=== PATIENT | female | born 1985 | race Caucasian/White ===

== ENCOUNTER 2017-01-07 11:09 | Emergency (ER) | payer OTHER ==
[~2017-01-07] VITALS: Ht 157.5 cm; Wt 71.5 kg
[~2017-01-07 11:09] MED LIST: ALBU0.63 NEB; VENTAER INH; ZOFR4TAB PO
--- NOTE | 2017-01-07 12:10 | PD ---
HPI Chief Complaint Severe constipation and pain Date Seen: Jan 07, 2017 Travel History International Travel<30 Days: No Contact w/Intl Traveler<30Days: No Known Affected Area: No History of Present Illness HPI This patient is a 31-year-old at 17 weeks gestation [facility] who presents with a week long history of constipation she not had a bowel movement a week she's developed pain in the lower abdomen some rectal bleeding when she is straining to move her bowels. She has no vaginal bleeding of leakage of fluid discharge or contractions. heart tones in the 150s. Patient states she has a lifelong history of constipation and she has recently in the last week use MiraLAX magnesia Colace stool softeners other bowel stimulants and with no results Para: 2 : 3 History Past Medical History Narrative Medical Constipation long-term, asthma and she takes albuterol for this, she had some nausea and vomiting this past weekend use Zofran for that Obstetric History Obstetric History 2 vaginal deliveries Past Surgical History Narrative Surgical Cholecystectomy Social History Alcohol Use: No Tobacco Use: No Substance Abuse: No Allergies-Medications (Allergen,Severity, Reaction): Coded Allergies: No Known Allergies (Unverified , 12/28/16) Home Meds Active Scripts Ondansetron (Zofran)4 Mg Tab4 Mg PO Q6HR PRN (NAUSEA OR VOMITING) #30 TAB Ref 2 Prov:Amanda Johnston 12/28/16 Albuterol 18 GM Inh (Ventolin Hfa 18 GM Inh)90 Mcg/Act Aer2 Puff INH Q4-6H PRN ( SHORTNESS OF BREATH) #1 INHALER Ref 1 Prov:Dmitriy Nicholas MD 11/30/16 Albuterol Neb 0.63 Mg/3 Ml Neb0.63 Mg NEB Q4HR NEB PRN (SHORTNESS OF BREATH) # 25 NEBULE Ref 0 Prov:Dmitriy Nicholas MD 11/30/16 Review of Systems General / Constitutional: No: Fever, Weight Gain, Chills, Other Eyes: No: Diploplia, Blurred Vision, Visual changes, Pain, Photophobia HENT: No: Headaches, Vertigo, Lightheadedness Cardiovascular: No: Irregular Rhythm, Chest Pain or Discomfort, Palpitations, Tachycardia, Syncope, Varicosities, Edema, Cyanosis Respiratory: No: Cough, Short of Breath, Other Gastrointestinal: Nausea, Vomiting, Constipation, No: Diarrhea Genitourinary: No: Decreased Urinary Output, Oliguria Musculoskeletal: No: Limited ROM, Weakness, Cramping, Edema, Pain Skin: No Rash, No Itching, No Dryness, No Lumps, No Change in Pigmentation, No Change in Nails, No Alopecia, No Lesions Neurologic: No: Weakness, Dizziness, Syncope, Focal Abnormalities, Coordination Problem, Headache, Slurred Speech, Seizures Psychiatric: No: Depression, Suicidal Ideations, Homicidal Ideation Endocrine: No: Heat Intolerance, Cold Intolerance, Polydipsia, Polyuria, Other Physical Exam Narrative GENERAL: Well-nourished, well-developed patient. SKIN: Warm and dry. HEAD: Normocephalic and atraumatic. EYES: No scleral icterus. No injection or drainage. ENT: No nasal drainage noted. Mucous membranes pink. Airway patent. NECK: Supple, trachea midline. No JVD. CARDIOVASCULAR: Regular rate and rhythm without murmurs, gallops, or rubs. RESPIRATORY: Breath sounds equal bilaterally. No accessory muscle use. BREASTS: Bilateral exam showed no masses , no retractions, no nipple discharge. ABDOMEN/GI: Abdomen soft, tender, bowel sounds present, no rebound, no guarding Gravid to [-17] weeks size Fundal Height: [-17] uterus is two fingers lower than the umbilicus GENITOURINARY: External Genitalia: intact and normal in appearance The vagina is compromised by a large amount of very hard stool in the rectal vault stool is compressing the vaginal vault from the posterior to the anterior almost like she has a bowling ball in the bottom of her pelvis, and this is all very tender is 1 can imagine Cervix: [Closed-] Dilatation: [-Closed] Effacement: [-] Thick Station: [-3] Membranes: [intact ] FHT's: 150 -] EXTREMITIES: No cyanosis or edema. BACK: Nontender without obvious deformity. No CVA tenderness. NEUROLOGICAL: Awake and alert. Motor and sensory grossly within normal limits. Five out of 5 muscle strength in all muscle groups. Normal speech. MDM Interpretation(s) This patient is today 31-year-old at 17 weeks who presents with a week long history of constipation and worsening pain in the lower abdomen. As well as some rectal bleeding when she strained to push. She has tried a rebound stimulus that she knows [id number] and has not had a Bm. in a week. On exam the heart tones are 150s her cervix is closed and high she has no obstetric issue however vaginally when he tried in the vagina it uterine into a large lump of this hard stool still in the rectal vault filling the whole posterior pelvis very tender Plan Plan this patient is to clear her statically which we've done and back to the main ER she needs to be disimpacted digitally and she is just not going to past this, stool on her own risk and need to be removed and she may need an anesthetic of some type to do that either regional block or general and evacuate this colon, GI needs to see this woman and follow her as an ongoing problem for her Diagnosis Diagnosis: Primary Impression: Constipation by delayed colonic transit Additional Impression: Abdominal pain during in second trimester Condition: Stable Mitesh Sainz II, MD Jan 07, 2017 12:10
[2017-01-07 12:32] VITALS: BP 97/53; PULSE 73; RESP 16; TEMP 97.5; O2SAT 99
[2017-01-07] MEDS ORDERED: PREN29TA PO (12:46)
--- NOTE | 2017-01-07 13:59 | PD ---
HPI . Constipation Chief Complaint: GI Complaint Time Seen by Provider: 13:30 Travel History International Travel<30 days: No Contact w/Intl Traveler<30days: No Traveled to known affect area: No History of Present Illness HPI Patient was sent to us from the OB ER for constipation. Her has already been evaluated. She is 17 weeks . She states she has not had a bowel movement in a week. Stool softeners and laxatives with no relief. Her vaginal exam done in OB showed a fecal load which was palpable through the vaginal vault. PFSH Past Medical History Asthma: Yes ?: LMP: 09/09/2017 Past Surgical History Section: Yes (X1) Cholecystectomy: Yes Social History Alcohol Use: No Tobacco Use: No Substance Use: No Allergies-Medications (Allergen,Severity, Reaction): Coded Allergies: No Known Allergies (Unverified , 01/07/17) Reported Meds & Prescriptions Reported Meds & Active Scripts Active Zofran (Ondansetron HCl) 4 Mg Tab 4 Mg PO Q6HR PRN Ventolin Hfa 18 GM Inh (Albuterol Sulfate) 90 Mcg/Act Aer 2 Puff INH Q4-6H PRN Albuterol Neb (Albuterol Sulfate) 0.63 Mg/3 Ml Neb 0.63 Mg NEB Q4HR NEB PRN Reported Plus Iron 29-1 mg ( Vit-Iron Carbonyl) 1 Tab Tab 1 Tab PO DAILY Review of Systems Gastrointestinal: Positive: Abdominal Pain, Constipation Physical Exam Narrative GENERAL: Awake and alert and in no acute distress. SKIN: Warm and dry. CARDIOVASCULAR: Regular rate and rhythm. RESPIRATORY: No accessory muscle use. GI: Gravid uterus. MUSCULOSKELETAL: No obvious deformities. No edema. NEUROLOGICAL: Awake and alert. No obvious cranial nerve deficits. Motor grossly within normal limits. Normal speech. PSYCHIATRIC: Appropriate mood and affect; insight and judgment normal. Data Data Last Documented VS Vital Signs Date Time Temp Pulse Resp B/P Pulse Ox O2 Delivery O2 Flow Rate FiO2 01/07/17 12:32 97.5 73 16 97/53 99 Orders Attending Discharge Order (01/07/17 ) Mineral Oil Enema (Fleet Mineral Oil Rosario (01/07/17 14:00) Peg (High)/E-Lyte Liq (Colyte Liq) (01/07/17 15:30) Enema (01/07/17 15:30) [facility] Medical Decision Making Medical Screen Exam Complete: Yes Emergency Medical Condition: Yes Differential Diagnosis Differential diagnosis of abdominal pain includes but is not limited to gastritis, pancreatitis, hepatitis, gastroenteritis, gallbladder disease, constipation, urinary retention, UTI, peptic ulcer disease, diverticulitis or appendicitis Narrative Course Patient was sent to us from OB treatment of constipation. We will start with a mineral oil fleets enema. The fleets enema was not at all effective. I then attempted digital disimpaction. She did not tolerate this very well. I was unable to remove any stool. I was able to break up some stool. She then reports a small bowel movement. We also did GoLytely but she did not tolerate that. It caused nausea and vomiting. I had asked for a soapsuds enema with the patient initially refused. I explained to her that there was really not a whole lot more than we can do the size a soapsuds enema. She agreed. However she subsequently stated that she would not undergo a soapsuds enema. There is nothing more that we can do for this patient here. Therefore, she is being discharged home. Diagnosis Primary Impression: Constipation by delayed colonic transit Additional Impression: Abdominal pain during in second trimester Patient Instructions: General Instructions, Early Labor Signs (ED), Movement (ED), Abdominal Pain in (ED) Departure Forms: Tests/Procedures Additional Instructions: pt to be transferred to main ED for disimpaction. transferred via wheelchair. Med/Other Pt SpecificInfo: Prescription(s) given Scripts Peg-Electrolytes (Golytely 236 gm)4,000 Ml Soln4,000 Ml PO ONCE #1 CONTAINER Ref 0 Prov:Nemo Arthur MD 01/07/17 Condition: Stable Nemo Arthur MD Jan 07, 2017 13:59
[2017-01-07] MEDS: MINERAL OIL ENEMA 118 ML BTL RECTAL ONE (14:00)
[2017-01-07] MEDS: PEG (High)/E-LYTE SOLN 4000 ML BTL PO ONE (15:30)
[2017-01-07] MEDS ORDERED: COLY4000S PO (18:21)
[2017-02-22] MEDS ORDERED: TERC0.8C VAGINAL (09:51)
== END 2017-01-07 18:55 | disposition home or self-care (01) ==
LOC: HOBED 11:09 → NEPD 18:55
DX: O99.89 Other specified diseases and conditions complicating pregnancy, childbirth and the puerperium (principal); K59.00 Constipation, unspecified; R10.9 Unspecified abdominal pain; J45.909 Unspecified asthma, uncomplicated; Z3A.17 17 weeks gestation of pregnancy
CPT/HCPCS: 99283

== ENCOUNTER 2017-03-02 14:49 | Emergency (ER) | payer OTHER ==
[~2017-03-02] VITALS: Ht 157.5 cm; Wt 73.5 kg
[~2017-03-02 14:49] MED LIST changes: +COLY4000S PO; +PREN29TA PO; +TERC0.8C VAGINAL
[2017-03-02 15:15] VITALS: TEMP 98.2
--- NOTE | 2017-03-02 15:30 | PD ---
HPI Chief Complaint crampy abdominal pain, r/o contractions Date Seen: Mar 02, 2017 Time Seen: 15:30 Travel History International Travel<30 Days: No Contact w/Intl Traveler<30Days: No Known Affected Area: No History of Present Illness HPI Patient is a 31-year-old at 24 weeks and 6 days and presents with 2 days of crampy abdominal pain. Patient reports that her crampy abdominal pain started yesterday morning upon waking. She reports that the pain is crampy suprapubic abdominal pain with associated low back pain and associated upper abdominal pressure. She reports that the pain is more on the left side than the right. She reports that the pain 7 out of 10 at its worst and currently a 5 out of 10 severity. She reports that cramps are about 30 minutes apart and not increasing in frequency. She denies any leakage of fluid. She endorses movement. She denies any vaginal bleeding. She endorses a headache, some shortness of breath, some pleuritic chest pain, swelling of her hands and feet. Otherwise review of systems negative. Para: 2 : 3 History Past Medical History Narrative Medical Asthma Obstetric History Obstetric History Patient is a . She reports that she has a healthy 8-year-old and a 4-year- old with hypothyroidism. Both were full-term deliveries. The first was a vaginal delivery the second was a for "I didn't dilate", failure to progress. Past Surgical History Narrative Surgical Cholecystectomy Family History Narrative Family History Patient has a family history of hypertension and diabetes on her mother's side. Social History Narrative Social History Patient lives at home with her 2 children. Alcohol Use: No Tobacco Use: No Substance Abuse: No Allergies-Medications (Allergen,Severity, Reaction): Coded Allergies: No Known Allergies (Unverified , 03/02/17) Home Meds Active Scripts Sulfamethoxazole-Trimethoprim 800-160 Mg Tab1 Tab PO BID #6 TAB Ref 0 Prov:Eliezer Navarrete MD R1 03/02/17 Terconazole Vaginal Cream 0.8 % Cream1 Appl VAGINAL HS #20 GM Ref 0 For 3 days. Prov:Angelita Shay CNM SEC[employer]F 02/22/17 Peg-Electrolytes (Golytely 236 gm)4,000 Ml Soln4,000 Ml PO ONCE #1 CONTAINER Ref 0 Prov:Nemo Arthur MD 01/07/17 Ondansetron (Zofran)4 Mg Tab4 Mg PO Q6HR PRN (NAUSEA OR VOMITING) #30 TAB Ref 2 Prov:Amanda Johnston 12/28/16 Albuterol 18 GM Inh (Ventolin Hfa 18 GM Inh)90 Mcg/Act Aer2 Puff INH Q4-6H PRN ( SHORTNESS OF BREATH) #1 INHALER Ref 1 Prov:Dmitriy Nicholas MD 11/30/16 Albuterol Neb 0.63 Mg/3 Ml Neb0.63 Mg NEB Q4HR NEB PRN (SHORTNESS OF BREATH) # 25 NEBULE Ref 0 Prov:Dmitriy Nicholas MD 11/30/16 Reported Medications Vit-Iron Carbonyl ( Plus Iron 29-1 mg)1 Tab Tab1 Tab PO DAILY #30 TAB Ref 0 01/07/17 Narrative Medication Patient reports using her albuterol inhaler twice a day and her albuterol nebulizer every night. Review of Systems General / Constitutional: No: Fever, Chills Eyes: No: Blurred Vision, Visual changes HENT: Headaches Cardiovascular: Chest Pain or Discomfort (pleuritic), Edema (of hands and feet) Respiratory: Short of Breath Gastrointestinal: Abdominal Pain, No: Nausea, Vomiting Genitourinary: No: Dysuria Musculoskeletal: Cramping, Pain, No: Edema Neurologic: Headache Physical Exam Afebrile vital signs stable. Narrative GENERAL: Well-nourished, well-developed patient. SKIN: Warm and dry. HEAD: Normocephalic and atraumatic. EYES: No scleral icterus. No injection or drainage. ENT: No nasal drainage noted. Mucous membranes pink. Airway patent. NECK: Supple, trachea midline. No JVD. CARDIOVASCULAR: Regular rate and rhythm with 2 to 3/6 systolic murmur, but no gallops, or rubs. RESPIRATORY: Breath sounds equal bilaterally. No accessory muscle use. ABDOMEN/GI: Abdomen soft, non-tender, bowel sounds present, no rebound, no guarding Gravid to 25 weeks size GENITOURINARY: External Genitalia: intact and normal in appearance Cervix: Posterior Dilatation: Closed Effacement: Thick Station: High Membranes: Intact Uterine Contractions: none FHT's: Category: Category 1 Baseline: 140 Reactive: + Variability: Moderate Decels: None EXTREMITIES: No cyanosis or edema. BACK: Nontender without obvious deformity. No CVA tenderness. NEUROLOGICAL: Awake and alert. Motor and sensory grossly within normal limits. Five out of 5 muscle strength in all muscle groups. Normal speech. Data Data Vital Signs Reviewed: Yes MDM Plan Patient is a 31-year-old at 24 weeks and 6 days and presents with 2 days of crampy abdominal pain. 1. crampy abdominal pain. Plan to rule out contractions and UTI Monitor heart rate, reassuring Monitor labor status with tocometry, no contractions noted Monitor maternal vital signs, AF VSS Encourage by mouth hydration UA remarkable for trace occult blood, small leukocyte esterase, moderate bacteria, few urine mucus, culture indicated. Plan to treat with Bactrim DS twice a day for 3 days. Discharge home with recommendations to do bed rest, take Tylenol, use heating pad 2. asthma not well controlled Recommended outpatient follow-up D/w Dr. Sainz. Diagnosis Diagnosis: Primary Impression: Abdominal pain during in second trimester Additional Impression: UTI (urinary tract infection) during Disposition: DISCHARGE HOME Condition: Good Scripts Sulfamethoxazole-Trimethoprim 800-160 Mg Tab1 Tab PO BID #6 TAB Ref 0 Prov:Eliezer Navarrete MD R1 03/02/17 Eliezer Navarrete MD R1 Mar 02, 2017 15:30
[2017-03-02 15:55] LABS: BACTERIA, URINE MOD /hpf; BLOOD, URINE TRACE (NEG); COMMENT (UR) CULTURE INDICATED; CULTURE IF INDICATED CULTURE INDICATED; GLUCOSE,URINE NEG (NEG); KETONE, URINE NEG (NEG); MUCUS URINE FEW /lpf (OCC); NITRITE,URINE NEG (NEG); PH, URINE 6.5 (5.0-8.5); SQUAMOUS EPITHELIAL CELL URINE 2 /hpf (0-5); URINE COLOR YELLOW (YELLW/STRAW)
[2017-03-02] MEDS ORDERED: SULF1TAB23 PO (16:05)
== END 2017-03-02 16:22 | disposition home or self-care (01) ==
LOC: HOBED 14:49
DX: O26.892 Other specified pregnancy related conditions, second trimester (principal); R10.9 Unspecified abdominal pain; O23.42 Unspecified infection of urinary tract in pregnancy, second trimester; M54.5 Low back pain; J45.909 Unspecified asthma, uncomplicated
CPT/HCPCS: 81001; 87086; 99283

== ENCOUNTER 2017-06-17 20:06 | Emergency (ER) | payer OTHER ==
[~2017-06-17 20:06] MED LIST changes: -COLY4000S PO; +FERRTAB2 PO; -TERC0.8C VAGINAL; -ZOFR4TAB PO
--- NOTE | 2017-06-17 20:56 | PD ---
HPI Chief Complaint Uterine contractions for 6 hours 40 weeks and 1 day Date Seen: Jun 17, 2017 Time Seen: 20:40 Travel History International Travel<30 Days: No Contact w/Intl Traveler<30Days: No Known Affected Area: No History of Present Illness HPI Pt is a 28 yo who presents at 40 weeks and 1 day with c/o uterine contractions for six hours prior to presentation.. No vaginal bleeding or leaking fluid. Active movements. [facility] with [facility] ED[facility] 06-16-2017. Pt had first child by vaginal delivery Second was by C Section in [place] Pt would like but is scheduled for Repeat C Section on Seen by Dr Sainz for c section/ consult 05-18-2017. History Past Medical History Medical History: Denies Significant Hx Obstetric History Obstetric History Previous x 1. Subsequent C Section [place], for FTP? Past Surgical History Narrative Surgical c Section Cholecystectomy 2014 Social History Alcohol Use: No Tobacco Use: No Substance Abuse: No Allergies-Medications (Allergen,Severity, Reaction): Coded Allergies: No Known Allergies (Unverified , 06/12/17) Home Meds Active Scripts Multi-Vit/Iron-Folic [id number] (Ferralet) 90-1-0.012-120 mg Tab, 90 CAPLET PO DAILY, #30 CAPLET Prov:Alexa LafleurP 05/22/17 Albuterol 18 GM Inh (Ventolin Hfa 18 GM Inh) 90 Mcg/Act Aer, 2 PUFF INH Q4-6H Y for SHORTNESS OF BREATH, #1 INHALER 0 Refills Prov:Alexa Lafleur [facility] 05/08/17 Albuterol 18 GM Inh (Ventolin Hfa 18 GM Inh) 90 Mcg/Act Aer, 2 PUFF INH Q4-6H Y for SHORTNESS OF BREATH, #1 INHALER 1 Refill Prov:Dmitriy Nicholas MD 11/30/16 Albuterol Neb (Albuterol Neb) 0.63 Mg/3 Ml Neb, 0.63 MG NEB Q4HR NEB Y for SHORTNESS OF BREATH, #25 NEBULE 0 Refills Prov:Dmitriy Nicholas MD 11/30/16 Reported Medications Vit-Iron Carbonyl ( Plus Iron 29-1 mg) 1 Tab Tab, 1 TAB PO DAILY for Nutritional Supplement, #30 TAB 0 Refills 01/07/17 Review of Systems Except as stated in HPI: all other systems reviewed are Neg Physical Exam Narrative GENERAL: Well-nourished, well-developed patient. SKIN: Warm and dry. HEAD: Normocephalic and atraumatic. EYES: No scleral icterus. No injection or drainage. ENT: No nasal drainage noted. Mucous membranes pink. Airway patent. NECK: Supple, trachea midline. No JVD. CARDIOVASCULAR: Regular rate and rhythm without murmurs, gallops, or rubs. RESPIRATORY: Breath sounds equal bilaterally. No accessory muscle use. BREASTS: Bilateral exam showed no masses , no retractions, no nipple discharge. ABDOMEN/GI: Abdomen soft, non-tender, bowel sounds present, no rebound, no guarding Gravid to [40] weeks size Fundal Height: [-] GENITOURINARY: External Genitalia: intact and normal in appearance BUS glands: [wnl] Cervix: [soft] Dilatation: [FT] Effacement: [50%] Station: [-3] Presentation: [vertex] Membranes: [intact] Uterine Contractions: [q 10 minutes]palpate mild FHT's: Category: [1] Baseline: [130s] Reactive: [-] Variability: [-] Decels: [none] EXTREMITIES: No cyanosis or edema. BACK: Nontender without obvious deformity. No CVA tenderness. NEUROLOGICAL: Awake and alert. Motor and sensory grossly within normal limits. Five out of 5 muscle strength in all muscle groups. Normal speech. Data Data Vital Signs Reviewed: Yes MDM Interpretation(s) False labor. previous C section, wants to Plan False labor 40 weeks and 1 day Diagnosis Diagnosis: Primary Impression: False labor after 37 completed weeks of gestation Additional Impression: 40 weeks gestation of Disposition: 01 DISCHARGE HOME Condition: Stable Patient Instructions: Early Labor Signs (ED) Avinash Jacobsen MD Jun 17, 2017 20:56
== END 2017-06-17 21:02 | disposition home or self-care (01) ==
LOC: HOBED 20:06
DX: O47.1 False labor at or after 37 completed weeks of gestation (principal); Z3A.40 40 weeks gestation of pregnancy
CPT/HCPCS: 59025

== ENCOUNTER 2017-06-19 08:33 | Inpatient (IN) | payer OTHER ==
[~2017-06-19] VITALS: Ht 157.5 cm; Wt 84.0 kg
[2017-06-19] MEDS ORDERED: LACTATED RINGER'S 1000 ML INJ 1,000 ML IV ONE (08:49)
[2017-06-19] MEDS ORDERED: LACTATED RINGER'S 1000 ML INJ 1,000 ML IV SCH (09:19)
--- NOTE | 2017-06-19 09:32 | HHI.HP ---
HPI Chief Complaint originally scheduled for c/s but pt would like to attempt (Carlee Soriano MD R1) Travel History International Travel<30 Days: No Contact w/Intl Traveler<30Days: No (Carlee Soriano MD R1) History of Present Illness HPI 31 yo at 40/3 presents today for schedule c/s but would like to attempt a . Pt denies LOF, vaginal bleeding. Pt endorses movement and contractions about every 10mins. Pt is GBS negative. No other complains. Of note pt came to OB triage on 06/17 for contraction and attempt , ( estimated due date 06/16). However, pt was sent home at the time because she was found to be in false labor on exam. Vaginal exam on 06/17 (FT/50/-3) Weeks Gestation: 40 Para: 2 : 3 (Carlee Soriano MD R1) History Past Medical History Narrative Medical asthma (Carlee Soriano MD R1) Obstetric History Obstetric History 31 yo . -1st - -2nd - c/s due to breech presentation (Carlee Soriano MD R1) Past Surgical History Narrative Surgical C/S X1 cholecystectomy, pt does not remember date of procedure (Carlee Soriano MD R1) Family History Narrative Family History DM--father DM, HTN, hypercholesterol, TIA-- grandmother (Carlee Soriano MD R1) Social History Alcohol Use: No Tobacco Use: No Substance Abuse: No (Carlee Soriano MD R1) Allergies-Medications (Allergen,Severity, Reaction): Coded Allergies: No Known Allergies (Unverified , 06/28/17) Home Meds Active Scripts Sennosides-Docusate Sodium (Senna Plus 8.6-50 mg) 8.6 Mg-50 Mg Tab, 2 TAB PO Q12H Y for CONSTIPATION, #60 TAB Prov:Carlee Soriano MD, R1 06/21/17 Ibuprofen (Ibuprofen) 600 Mg Tab, 600 MG PO Q6H Y for CRAMPING, #20 TAB Prov:Carlee Soriano MD, R1 06/21/17 Multi-Vit/Iron-Folic [id number] C (Ferralet) 90-1-0.012-120 mg Tab, 90 CAPLET PO DAILY, #30 CAPLET Prov:LafleurAlexa SHIRT FINISHER 05/22/17 Albuterol 18 GM Inh (Ventolin Hfa 18 GM Inh) 90 Mcg/Act Aer, 2 PUFF INH Q4-6H Y for SHORTNESS OF BREATH, #1 INHALER 0 Refills Prov:LafleurAlexa SHIRT FINISHER 05/08/17 Albuterol 18 GM Inh (Ventolin Hfa 18 GM Inh) 90 Mcg/Act Aer, 2 PUFF INH Q4-6H Y for SHORTNESS OF BREATH, #1 INHALER 1 Refill Prov:Dmitriy Nicholas MD 11/30/16 Albuterol Neb (Albuterol Neb) 0.63 Mg/3 Ml Neb, 0.63 MG NEB Q4HR NEB Y for SHORTNESS OF BREATH, #25 NEBULE 0 Refills Prov:Dmitriy Nicholas MD 11/30/16 Review of Systems Except as stated in HPI: all other systems reviewed are Neg (Carlee Soriano MD R1) Physical Exam Narrative GENERAL: Well-nourished, well-developed patient. SKIN: Warm and dry. HEAD: Normocephalic and atraumatic. EYES: No scleral icterus. No injection or drainage. ENT: No nasal drainage noted. Mucous membranes pink. Airway patent. NECK: Supple, trachea midline. No JVD. CARDIOVASCULAR: Normal s1 and s2. Regular rate and rhythm without murmurs, gallops, or rubs. RESPIRATORY: Breath sounds equal bilaterally. No accessory muscle use. BREASTS: Bilateral exam showed no masses , no retractions, no nipple discharge. ABDOMEN/GI: Abdomen soft, non-tender, bowel sounds present, no rebound, no guarding Gravid to 40/3 weeks size GENITOURINARY: Dilatation: 2 Effacement: 0 Station: -3 Presentation: vertex Membranes: Intact Uterine Contractions: irregular, every 6-10mins FHT's: Category: 1 Baseline: 120 Reactive: positive Variability: moderate Decels: none EXTREMITIES: No cyanosis or edema. BACK: Nontender without obvious deformity. No CVA tenderness. NEUROLOGICAL: Awake and alert. Motor and sensory grossly within normal limits. Five out of 5 muscle strength in all muscle groups. Normal speech. (Carlee Soriano MD R1) Caprini VTE Risk Assessment Caprini VTE Risk Assessment: Mod/High Risk (score >= 2) Caprini Risk Assessment Model Point Value = 1 Point Value = 2 Point Value = 3 Point Value = 5 Age 41-60 Minor surgery BMI > 25 kg/m2 Swollen legs Varicose veins or History of unexplained or recurrent spontaneous Oral contraceptives or hormone replacement Sepsis (< 1 month) Serious lung disease, including pneumonia (< 1 month) Abnormal pulmonary function Acute myocardial infarction Congestive heart failure (< 1 month) History of inflammatory bowel disease Medical patient at bed rest Age 61-74 Arthroscopic surgery Major open surgery (> 45 min) Laparoscopic surgery (> 45 min) Malignancy Confined to bed (> 72 hours) Immobilizing plaster cast Central venous access Age >= 75 History of VTE Family history of VTE Factor V Leiden Prothrombin [id number] Lupus anticoagulant Anticardiolipin antibodies Elevated serum homocysteine Heparin-induced thrombocytopenia Other congenital or acquired thrombophilia Stroke (< 1 month) Elective arthroplasty Hip, pelvis, or leg fracture Acute spinal cord injury (< 1 month) Prophylaxis Regimen Total Risk Factor Score Risk Level Prophylaxis Regimen 0-1 Low Early ambulation 2 Moderate Order ONE of the following: *Sequential Compression Device (SCD) *Heparin 5000 units SQ BID 3-4 Higher Order ONE of the following medications: *Heparin 5000 units SQ TID *Enoxaparin/Lovenox 40 mg SQ daily (WT < 150 kg, CrCl > 30 mL/min) *Enoxaparin/Lovenox 30 mg SQ daily (WT < 150 kg, CrCl > 10-29 mL/min) *Enoxaparin/Lovenox 30 mg SQ BID (WT < 150 kg, CrCl > 30 mL/min) AND/OR *Sequential Compression Device (SCD) 5 or more Highest Order ONE of the following medications: *Heparin 5000 units SQ TID (Preferred with Epidurals) *Enoxaparin/Lovenox 40 mg SQ daily (WT < 150 kg, CrCl > 30 mL/min) *Enoxaparin/Lovenox 30 mg SQ daily (WT < 150 kg, CrCl > 10-29 mL/min) *Enoxaparin/Lovenox 30 mg SQ BID (WT < 150 kg, CrCl > 30 mL/min) AND *Sequential Compression Device (SCD) (Carlee Soriano MD R1) Data Data Vital Signs Reviewed: Yes Orders Orders Admit To Inpatient (06/19/17 ) Code Status (06/19/17 08:49) Vital Signs (Adult) .ON ADMISSION (06/19/17 08:49) Activity Oob Ad Talya (06/19/17 08:49) Heart (06/19/17 08:49) Urinary Catheter Management TAE.Q8H (06/19/17 08:49) ^ Preps (06/19/17 08:49) Scd / [place] / Foot Pump TAE.QSHIFT (06/19/17 08:49) ^ Ultrasound For Locatio (06/19/17 08:49) Diet Npo (06/19/17 Breakfast) Lactated Ringer's 1000 Ml Inj (Lr 1000 M (06/19/17 08:49) Lactated Ringer's 1000 Ml Inj (Lr 1000 M (06/19/17 09:19) Cefazolin 2 Gm Premix (Ancef 2 Gm Premix (06/19/17 10:00) Citric Acid-Sodium Citrate Liq (Bicitra (06/19/17 10:30) Type And Screen (06/19/17 08:49) Complete Blood Count With Diff (06/19/17 08:49) Urinalysis - C+S If Indicated (06/19/17 08:49) Inpatient Certification (06/19/17 ) Specimen To Be Collected PRN (06/19/17 08:49) (Carele Soriano MD R1) Assessment/Plan Problem List: (1) 40 weeks gestation of ICD Codes: Z3A.40 - 40 weeks gestation of Status: Resolved Assessment and Plan 31 yo at 40/3 patient was originally scheduled for c/s today but would like to attempt . 1. IUP at 39 wks -continue routine OB care -FHT, cat 1 - VS WNL -Pt assessed/examined and established to be a good candidate for , -pt to be admitted for trial of labor -pt will be assessed for labor progression with plan for AROM and to be placed on pitocin to help labor progression if needed. renetta Carcamo (Carlee Soriano MD R1) Collaborating MD Comments Agree with care. Discussed pros and cons of including repeat and risk of uterine rupture given her previous scar. (Hannah Carcamo MD) Carlee Soriano MD R1 Jun 19, 2017 09:32 Hannah Carcamo MD Jul 10, 2017 17:14
[2017-06-19] MEDS ORDERED: LACTATED RINGER'S 1000 ML INJ 1,000 ML IV PRN (09:38)
[2017-06-19] MEDS ORDERED: LIDOCAINE HCL 1% 50 ML VIAL INFIL PRN (09:45)
[2017-06-19] MEDS ORDERED: CITRIC ACID-SODIUM CITRATE LIQ 30 ML UDC PO SCH ×2 (09:45→10:30)
[2017-06-19] MEDS ORDERED: ONDANSETRON HCL 4 MG/2 ML VIAL IV PRN (09:45)
[2017-06-19] MEDS ORDERED: MINERAL OIL 10 ML VIAL TOPICAL PRN (09:45)
[2017-06-19] MEDS ORDERED: SODIUM CHLORID 0.9% 500 ML INJ 500 ML IV PRN (09:45)
[2017-06-19] MEDS ORDERED: LIDOCAINE HCL 1% 50 ML VIAL I-DERMAL PRN (09:45)
--- NOTE | 2017-06-19 09:48 | PD.PN.STU ---
Subjective Remarks HPI: This is a 31 y.o. F presenting for an elective with her significant other. Patient denies any pain but relays that she is nervous.Reports no VB, no LOF, +FM, and reports CTX occurring roughly every 10 minutes. Patient is GBS (-). ROS: Limitations: Patient Poor Historian Constitutional: Denies: Fever, Chills, Change in Appetite HEENT: Denies: Headaches, Blurred Vision Respiratory: Denies: Shortness of Breath Cardiovascular: Denies: Chest Pain, palpitations GI: Denies: Nausea, Vomiting, Abdominal Pain, Diarrhea, Constipation : Denies: Hematuria, Vaginal Discharge, LOF, Vaginal Bleeding PMH: History of well-controlled asthma Medications: Active Ferralet (Multi-Vit/Iron-Folic Aepe-R46-Boy C) 90-1-0.012-120 mg Tab 90 Caplet PO DAILY Ventolin Hfa 18 GM Inh (Albuterol Sulfate) 90 Mcg/Act Aer 2 Puff INH Q4-6H PRN Ventolin Hfa 18 GM Inh (Albuterol Sulfate) 90 Mcg/Act Aer 2 Puff INH Q4-6H PRN Albuterol Neb (Albuterol Sulfate) 0.63 Mg/3 Ml Neb 0.63 Mg NEB Q4HR NEB PRN Reported Plus Iron 29-1 mg ( Vit-Iron Carbonyl) 1 Tab Tab 1 Tab PO DAILY Past Surgical History: Significant for a laparoscopic cholecystectomy years prior which patient cannot recall. Significant for previous approximately 7 years ago OB History: Pregnancies: 3 including current Results: 1 Vaginal - Son. 9 years ago.; 1 - Daughter. 7 years ago. performed due to breech presentation. Allergies: Coded Allergies No Known Allergies (Unverified06/18/17) Family History: Significant for HTN, HLD, DM II Social History: Denies tobacco, ethanol, or illicit drug use. Jeff Rangel M3 Jun 19, 2017 09:48
[2017-06-19] MEDS ORDERED: SODIUM CHLOR 0.9% 1000 ML INJ 1,000 ML IV PRN (09:58)
[2017-06-19] MEDS ORDERED: ceFAZolin 2 GM PREMIX 50 ML IV SCH (10:00)
[2017-06-19] MEDS ORDERED: OXYTOCIN 30 UNITS-500ML PREMIX 500 ML IV ONE (10:30)
[2017-06-19] MEDS: LACTATED RINGER'S 1000 ML INJ 1,000 ML IV SCH ×3 (10:33→19:58)
--- NOTE | 2017-06-19 10:34 | HHI.PR ---
CLINICAL LAW PROFESSOR Note Note Discussed vs repeat with patient who firmly desires an attempt at . Cervix 2/50/-2, AROM performed with clear fluid obtained. Will start pitocin augmentation. Discussed risks of and with patient including uterine rupture with possible compromise. FHR 140 reactive, moderate variability. Previous was performed in [place] for breech presentation and done so that "I could have the next baby normally" Hannah Carcamo MD Jun 19, 2017 10:34
[2017-06-19 11:11] LABS: AUTOMATED NEUTROPHIL # 4.6 TH/MM3 (1.8-7.7); BASOPHIL % 0.6 % (0.0-2.0); EOSINOPHIL # 0.6 TH/MM3 (0-0.4); EOSINOPHIL % 8.4 % (0.0-4.0); HEMATOCRIT 30.4 % (35.0-46.0); HEMO FLAGS DIFF FINAL; LYMPH % 19.3 % (9.0-44.0); LYMPHOCYTE # 1.4 TH/MM3 (1.0-4.8); MEAN CELL VOLUME 81.7 FL (80.0-100.0); MEAN CORPUSCULAR HEMOGLOBIN 25.7 PG (27.0-34.0); MEAN CORPUSCULAR HGB CONC 31.5 % (32.0-36.0); MONO % 6.3 % (0.0-8.0); NEUT % 65.4 % (16.0-70.0); PLATELET COUNT 217 TH/MM3 (150-450); RED BLOOD COUNT 3.72 MIL/MM3 (4.00-5.30); RED CELL DISTRIBUTION WIDTH 18.8 % (11.6-17.2); WHITE BLOOD COUNT 7.1 TH/MM3 (4.0-11.0)
[2017-06-19 11:15] LABS: BACTERIA, URINE RARE /hpf; BLOOD, URINE TRACE (NEG); COMMENT (UR) CULT NOT INDICATED; CULTURE IF INDICATED CULT NOT INDICATED; GLUCOSE,URINE NEG (NEG); KETONE, URINE NEG (NEG); MUCUS URINE FEW /lpf (OCC); NITRITE,URINE NEG (NEG); PH, URINE 6.5 (5.0-8.5); SQUAMOUS EPITHELIAL CELL URINE 2 /hpf (0-5); URINE COLOR YELLOW (YELLW/STRAW)
[2017-06-19] MEDS ORDERED: OXYTOCIN 30 UNITS-500ML PREMIX 500 ML IV SCH (11:30)
--- NOTE | 2017-06-19 18:18 | PD.LABORPN ---
Subjective Subjective Labor progress note S: Patient reports pain but has been managing with fentanyl, is interested eventually an epidural but not at this time O: VSS AF FHT: 120s with good accelerations and no decelerations noted reassuring category 1 [place]: Every 2-3 minutes SVE: 45/80/-1 Assessment/plan: 1. IUP at 40.3 2. : Patient undergoing trial of labor after with history of a previous vaginal delivery, we are carefully titrating oxytocin, with appropriate progress at this time. We previously discussed the risks of including but not limited to uterine rupture and or the small possibility of catastrophic internal or outcome however these risks are low and we discussed that we would monitor the fetus closely and progressed received a delivery at any point that we became concerned about well-being the patient is in agreement and we will continue with this plan. 3. GBS negative 4. well-being: FHR reassuring and appropriate for gestational age, category 1 tracing, we'll continue to monitor closely Objective Vital Signs Vital Signs Date Time Temp Pulse Resp B/P (MAP) Pulse Ox O2 Delivery O2 Flow Rate FiO2 06/19/17 16:00 18 Objective Pelvic Exam: Cervix: [-] Dilatation: [-] Effacement: [-] Station: [-] Presentation: [-] Membranes: [intact or ruptured] Uterine Contractions: [-] FHT's: Category: [-] Baseline: [-] Reactive: [-] Variability: [-] Decels: [-] Weeks Gestation: 40 Gest Age Assessed Date: Jun 19, 2017 Gest Age Assessed Time: 18:18 Pt started active labor?: Yes Active labor start date: Jun 19, 2017 Active labor start time: 18:18 Medical induction of labor?: No Artificial rupture of membrane: Yes Artificial ROM date: Jun 19, 2017 Artifical ROM time: 10:30 Assessment/Plan Problem List: (1) 40 weeks gestation of ICD Codes: Z3A.40 - 40 weeks gestation of Status: Amanda Abel MD Jun 19, 2017 18:18
[2017-06-19] MEDS ORDERED: ePHEDrine/NS 25 MG/5 ML SYR ONE (19:06)
[2017-06-19] MEDS ORDERED: fentaNYL 2MCG-BUPIV 0.125% INJ 100 ML ONE (19:06)
[2017-06-19] MEDS ORDERED: DO NOT ADMINISTER ANTICOAGULANTS PRN (20:45)
[2017-06-19] MEDS ORDERED: NO SYSTEM NARCOTICS PRN (20:45)
[2017-06-19] MEDS ORDERED: ePHEDrine/NS 25 MG/5 ML SYR IV PRN (20:45)
[2017-06-19] MEDS ORDERED: fentaNYL 2MCG-BUPIV 0.125% 100 ML EPIDURAL SCH (20:45)
[2017-06-19] MEDS ORDERED: METHYLERGONOVINE MALEATE 0.2 MG/ML VIAL ONE ×2 (23:07→23:39)
[2017-06-19] MEDS ORDERED: MISOPROSTOL 200 MCG TAB ONE ×2 (23:07→23:09)
--- NOTE | 2017-06-19 23:56 | PD.OB.DELI ---
Weeks gestation: 40 Gest age assessed date: Jun 19, 2017 Gest age assessed time: 18:18 Pt started active labor?: Yes Active labor start date: Jun 19, 2017 Active labor start time: 18:18 Medical induction of labor?: No Artificial rupture of membrane: Yes Artificial ROM date: Jun 19, 2017 Artifical ROM time: 10:30 Anesthesia: Epidural Episiotomy: Right mediolateral Vaginal Delivery: Normal Presentation: Occiput anterior Nuchal Cord: x1 Delayed cord clamping (45 sec): Yes : Female Delivery date: Jun 19, 2017 Delivery time: 23:01 One Minute : 9 Five Minute : 9 Placenta: Spontaneous delivery Laceration: Episiotomy, 2 deg Repair: Vicryl interrupted, Vicryl running Estimated blood loss: 600cc Additional Information Upon presenting to room to evaluate heart rate tracing, the patient was noted to be 9 cm dilated she suddenly progressed to complete/complete/0 and commenced spontaneous maternal expulsive efforts. heart tones were in the 90s to 100s was several elevations throughout and noted to maintain moderate long-term variability and accelerations. The patient progressed and was noted to have a very tight perineum and introitus due to previous repair that appeared to extend nearly to the anus. Due to this tight perineal band and the concern that this would extend into a fourth degree laceration as well as heart tones that were dropping into the 80s the patient was verbally consented for a small right mediolateral episiotomy. Approximately 1-2 cm right mediolateral episiotomy was performed followed by subcutaneous atraumatic delivery of the head and the shoulders were delivered through a nuchal cord and the placed on maternal abdomen. The was vigorous at delivery so cord clamp was delayed for 45 seconds. The cord was doubly clamped and cut. Placenta was removed spontaneously and appeared to be in intact. Present 5 cc of plain 1% lidocaine was injected in the episiotomy repaired with 2-0 Vicryl in standard fashion with excellent cosmesis and hemostasis. Patient was noted to have heavier than typical bleeding with estimated blood loss 600 cc. Sweep of the lower uterine segment evacuating remaining clot clots and revealed a normal anterior uterine wall. Patient received 0.2 mg of Methergine IM 2 doses thousand micrograms of Cytotec placed rectally with significant improvement of her bleeding. The Apgars were 9 and 9 and weight 3535 g. and mother are both doing well. Amanda Parra MD Jun 19, 2017 23:56
--- NOTE | 2017-06-19 23:59 | HHI.PR ---
Subjective Remarks Delivery note Upon presenting to room to evaluate heart rate tracing, the patient was noted to be 9 cm dilated she suddenly progressed to complete/complete/0 and commenced spontaneous maternal expulsive efforts. heart tones were in the 90s to 100s was several elevations throughout and noted to maintain moderate long-term variability and accelerations. The patient progressed and was noted to have a very tight perineum and introitus due to previous repair that appeared to extend nearly to the anus. Due to this tight perineal band and the concern that this would extend into a fourth degree laceration as well as heart tones that were dropping into the 80s the patient was verbally consented for a small right mediolateral episiotomy. Approximately 1-2 cm right mediolateral episiotomy was performed followed by subcutaneous atraumatic delivery of the head and the shoulders were delivered through a nuchal cord and the placed on maternal abdomen. The was vigorous at delivery so cord clamp was delayed for 45 seconds. The cord was doubly clamped and cut. Placenta was removed spontaneously and appeared to be in intact. Present 5 cc of plain 1% lidocaine was injected in the episiotomy repaired with 2-0 Vicryl in standard fashion with excellent cosmesis and hemostasis. Patient was noted to have heavier than typical bleeding with estimated blood loss 600 cc. Sweep of the lower uterine segment evacuating remaining clot clots and revealed a normal anterior uterine wall. Patient received 0.2 mg of Methergine IM 2 doses thousand micrograms of Cytotec placed rectally with significant improvement of her bleeding. The Apgars were 9 and 9 and weight 3535 g. and mother are both doing well. Objective Vital Signs Date Time Temp Pulse Resp B/P (MAP) Pulse Ox O2 Delivery O2 Flow Rate FiO2 06/19/17 21:17 18 06/19/17 16:00 18 Result Diagram: 06/19/17 0840 Amanda Parra MD Jun 19, 2017 23:59
[2017-06-20] MEDS ORDERED: METHYLERGONOVINE MALEATE 0.2 MG/ML VIAL IM ONE ×3 (00:15)
[2017-06-20] MEDS ORDERED: BENZOCAINE 20% TOPICAL SPRAY 60 ML CAN TOPICAL PRN (00:15)
[2017-06-20] MEDS ORDERED: WITCH HAZEL 50%/GLYCERIN 12.5% 40 PAD JAR TOPICAL PRN (00:15)
[2017-06-20] MEDS ORDERED: ZOLPIDEM TARTRATE 5 MG TAB PO PRN (00:15)
[2017-06-20] MEDS ORDERED: ONDANSETRON ODT 4 MG TAB PO PRN (00:15)
[2017-06-20] MEDS ORDERED: OXYTOCIN 30 UNITS-500ML PREMIX 500 ML IV SCH (00:15)
[2017-06-20] MEDS ORDERED: ALUMINUM/MAGNESIUM/SIMETH 30 ML CUP PO PRN (00:15)
[2017-06-20] MEDS ORDERED: oxyCODONE/ACETAMINOPHEN 5 MG/325 MG TAB PO PRN (00:15)
[2017-06-20] MEDS ORDERED: SODIUM CHLORIDE 0.9% FLUSH 10 ML FLUSH IV FLUSH PRN (00:15)
[2017-06-20] MEDS ORDERED: METHYLERGONOVINE MALEATE 0.2 MG TAB PO SCH (00:15)
[2017-06-20] MEDS: DOCUSATE SODIUM 50 MG/SENNA 8.6 MG TAB PO PRN ×2 (00:28→15:20)
[2017-06-20] MEDS ORDERED: MISOPROSTOL 200 MCG TAB RECTAL SCH (01:15)
[2017-06-20] MEDS: METHYLERGONOVINE MALEATE 0.2 MG TAB PO SCH ×2 (06:18→12:00)
--- NOTE | 2017-06-20 07:29 | HHI.OB ---
Subjective Post Day: 1 Remarks Pt seen and examined this morning. day # 1 AFVSS overnight. Decreased lochia. Denies dysuria. No breast tenderness. She is feeding the baby via breast. Appetite good. No nausea or vomiting. Patient has not yet had a bowel movement or bowel gas. Ambulating well. Denies calf pain or shortness of breath. Otherwise, she is doing well this morning and has no other concerns. Objective Vitals/I&O Vital Signs Date Time Temp Pulse Resp B/P (MAP) Pulse Ox O2 Delivery O2 Flow Rate FiO2 06/19/17 21:17 18 06/19/17 16:00 18 Objective Remarks GENERAL: Well-nourished, well-developed patient. CARDIOVASCULAR: Regular rate and rhythm without murmurs, gallops, or rubs. RESPIRATORY: Breath sounds equal bilaterally. No accessory muscle use. ABDOMEN/GI: Abdomen soft, non-tender. Fundus: Firm, non-tender at umbilicus. GENITOURINARY: Light to moderate bleeding. EXTREMITIES: No cyanosis or edema, non-tender, without signs of DVT. Medications and IVs Current Medications Medications (Trade) Dose Ordered Sig/Blanca Route Start Time Stop Time Status Last Admin Lactated Ringer's 1,000 ml @ 125 mls/hr Q8H IV 06/19/17 09:38 06/19/17 19:58 Lactated Ringer's 1,000 ml @ 3,000 mls/hr Q20M PRN IV 06/19/17 09:38 Sodium Chloride 500 ml @ 1,000 mls/hr ONCE PRN IV 06/19/17 09:45 06/20/17 09:44 Sodium Chloride 1,000 ml @ 100 mls/hr Q10H PRN IV 06/19/17 09:58 (Xylocaine 1% Inj (50 ml)) 0.1 ml UNSCH X1 PRN I-DERMAL 06/19/17 09:45 06/22/17 09:44 (Bicitra Liq) 30 ml WELFARE DIRECTOR PO 06/19/17 09:45 06/23/17 09:44 (Zofran Inj) 4 mg Q6H PRN IV 06/19/17 09:45 06/20/17 00:27 (fentaNYL INJ) 50 mcg Q1H PRN IV PUSH 06/19/17 09:45 (fentaNYL INJ) 100 mcg Q1H PRN IV PUSH 06/19/17 09:45 06/19/17 16:48 (Xylocaine 1% Inj (50 ml)) 10 ml UNSCH X1 PRN INFIL 06/19/17 09:45 06/21/17 09:44 06/19/17 23:31 (Muri-Lube Oil) 10 ml UNSCH PRN TOPICAL 06/19/17 09:45 06/19/17 23:31 Oxytocin 500 ml @ 1 mls/hr TITRATE IV 06/19/17 11:30 Miscellaneous Information No systemic narcotics to be given except... UNSCH PRN .XX 06/19/17 20:45 06/20/17 20:44 Miscellaneous Information DO NOT ADMINISTER ANY ANTICOAGUL... UNSCH PRN .XX 06/19/17 20:45 06/20/17 20:44 Fentanyl/ Bupivacaine HCl 100 ml @ 0 mls/hr TITRATE EPIDURAL 06/19/17 20:45 06/19/17 20:47 (ePHEDrine/NS 25 MG/5 ML SYR) 10 mg UNSCH PRN IV 06/19/17 20:45 06/20/17 20:44 06/19/17 21:32 (NS Flush) 2 ml BID IV FLUSH 06/20/17 09:00 (NS Flush) 2 ml UNSCH PRN IV FLUSH 06/20/17 00:15 (Tylenol) 650 mg Q4H PRN PO 06/20/17 00:15 (Motrin) 600 mg Q6H PRN PO 06/20/17 00:15 (Percocet 5-325 Mg) 1 tab Q4H PRN PO 06/20/17 00:15 (Percocet 5-325 Mg) 2 tab Q4H PRN PO 06/20/17 00:15 (Americaine 20% Top Spr) 1 spray Q4H PRN TOPICAL 06/20/17 00:15 06/20/17 01:21 (Tucks Pads) 1 applic QID PRN TOPICAL 06/20/17 00:15 06/20/17 01:21 (Abiola-Colace) 2 tab Q12H PRN PO 06/20/17 00:15 06/20/17 00:28 (Ambien) 5 mg HS PRN PO 06/20/17 00:15 (M-M-R Ii Inj) 0.5 ml ONCE ONCE SQ 06/20/17 16:00 06/20/17 16:01 (Boostrix Inj) 0.5 ml ONCE ONCE IM 06/20/17 16:00 06/20/17 16:01 (Mag-Al Plus Susp Liq) 15 ml Q8H PRN PO 06/20/17 00:15 (Zofran Odt) 4 mg Q6H PRN PO 06/20/17 00:15 (Methergine) 0.2 mg Q6HR PO 06/20/17 06:00 06/21/17 00:01 06/20/17 06:18 Assessment/Plan Problem List: (1) 40 weeks gestation of ICD Codes: Z3A.40 - 40 weeks gestation of Status: Acute (2) (spontaneous vaginal delivery) ICD Codes: O80 - Encounter for full-term uncomplicated delivery Assessment and Plan 31y/o female who is day # 1 s/p . -Continue routine care. -Motrin PRN pain. -Encouraged OOB. Advised pelvic rest for 6 wks. -Re: ctrl, she would like to discuss her options at her follow-up appointment. -Anticipate discharge tomorrow with baby. dw Dr. Fidel MD Discharge Planning Tomorrow pending clinical course Yoseph Ríos MD R2 Jun 20, 2017 07:29
[2017-06-20] MEDS: IBUPROFEN 600 MG TAB PO PRN ×3 (08:17→21:32)
[2017-06-20] MEDS: ACETAMINOPHEN 325 MG TAB PO PRN ×2 (08:17→15:20)
[2017-06-20] MEDS ORDERED: SODIUM CHLORIDE 0.9% FLUSH 10 ML FLUSH IV FLUSH SCH (09:00)
[2017-06-20 11:28] LABS: HEMATOCRIT 26.4 % (35.0-46.0); MEAN CELL VOLUME 81.4 FL (80.0-100.0); MEAN CORPUSCULAR HEMOGLOBIN 26.5 PG (27.0-34.0); MEAN CORPUSCULAR HGB CONC 32.6 % (32.0-36.0); PLATELET COUNT 162 TH/MM3 (150-450); RED BLOOD COUNT 3.24 MIL/MM3 (4.00-5.30); RED CELL DISTRIBUTION WIDTH 18.3 % (11.6-17.2); REVIEW FLAG FINAL
[2017-06-20] MEDS ORDERED: DIPHTH/TETANUS/ACEL PERTUSSIS (BOOSTER) 0.5 ML VIAL/PFS IM ONE (16:00)
[2017-06-20] MEDS ORDERED: MEASLES, MUMPS, RUBELLA VACCINE 0.5 ML VIAL SQ ONE (16:00)
[2017-06-20] MEDS: oxyCODONE/ACETAMINOPHEN 5 MG/325 MG TAB PO PRN (21:32)
[2017-06-21] MEDS: ACETAMINOPHEN 325 MG TAB PO PRN (03:30)
[2017-06-21] MEDS: IBUPROFEN 600 MG TAB PO PRN ×2 (03:30→09:41)
[2017-06-21 04:30] VITALS: RESP 18
[2017-06-21] MEDS: LACTATED RINGER'S 1000 ML INJ 1,000 ML IV SCH (05:21)
[2017-06-21] MEDS ORDERED: IBUP-232 PO (08:36)
[2017-06-21] MEDS ORDERED: SENN1TAB PO (08:36)
--- NOTE | 2017-06-21 08:39 | PD.LABORPN ---
Objective Vital Signs Vital Signs Date Time Temp Pulse Resp B/P (MAP) Pulse Ox O2 Delivery O2 Flow Rate FiO2 06/21/17 04:30 18 06/21/17 04:30 18 Objective Pelvic Exam: Cervix: [-] Dilatation: [-] Effacement: [-] Station: [-] Presentation: [-] Membranes: [intact or ruptured] Uterine Contractions: [-] FHT's: Category: [-] Baseline: [-] Reactive: [-] Variability: [-] Decels: [-] Weeks Gestation: 40 Gest Age Assessed Date: Jun 19, 2017 Gest Age Assessed Time: 18:18 Pt started active labor?: Yes Active labor start date: Jun 19, 2017 Active labor start time: 18:18 Medical induction of labor?: No Artificial rupture of membrane: Yes Artificial ROM date: Jun 19, 2017 Artifical ROM time: 10:30 Assessment/Plan Problem List: (1) 40 weeks gestation of ICD Codes: Z3A.40 - 40 weeks gestation of Status: Resolved (2) (spontaneous vaginal delivery) ICD Codes: O80 - Encounter for full-term uncomplicated delivery Status: Acute Carlee Soriano MD R1 Jun 21, 2017 08:39
--- NOTE | 2017-06-21 08:51 | HHI.OB ---
Subjective Post Day: 2 Remarks Pt seen and examined this morning. day # 2 s/p . AFVSS overnight. Decreased lochia. Denies dysuria, fever, or chills. No breast tenderness. She is feeding the baby via breast. Appetite good. No nausea or vomiting. Patient has not yet had a bowel movement but is passing bowel gas. Ambulating well. Denies calf pain or shortness of breath. Otherwise, she is doing well this morning and has no other concerns. Objective Vitals/I&O Vital Signs Date Time Temp Pulse Resp B/P (MAP) Pulse Ox O2 Delivery O2 Flow Rate FiO2 06/21/17 04:30 18 06/21/17 04:30 18 06/20/17 22:32 18 Objective Remarks GENERAL: Well-nourished, well-developed patient. CARDIOVASCULAR: Regular rate and rhythm without murmurs, gallops, or rubs. RESPIRATORY: Breath sounds equal bilaterally. No accessory muscle use. ABDOMEN/GI: Abdomen soft, non-tender. Fundus: Firm, non-tender at umbilicus. GENITOURINARY: Light to moderate bleeding. EXTREMITIES: No cyanosis or edema, non-tender, without signs of DVT. Medications and IVs Current Medications Medications (Trade) Dose Ordered Sig/Blanca Route Start Time Stop Time Status Last Admin Lactated Ringer's 1,000 ml @ 125 mls/hr Q8H IV 06/19/17 09:38 06/19/17 19:58 Lactated Ringer's 1,000 ml @ 3,000 mls/hr Q20M PRN IV 06/19/17 09:38 Sodium Chloride 1,000 ml @ 100 mls/hr Q10H PRN IV 06/19/17 09:58 (Xylocaine 1% Inj (50 ml)) 0.1 ml UNSCH X1 PRN I-DERMAL 06/19/17 09:45 06/22/17 09:44 (Bicitra Liq) 30 ml ANESTHETIC ASSISTANT PO 06/19/17 09:45 06/23/17 09:44 (Zofran Inj) 4 mg Q6H PRN IV 06/19/17 09:45 06/20/17 00:27 (fentaNYL INJ) 50 mcg Q1H PRN IV PUSH 06/19/17 09:45 (fentaNYL INJ) 100 mcg Q1H PRN IV PUSH 06/19/17 09:45 06/19/17 16:48 (Xylocaine 1% Inj (50 ml)) 10 ml UNSCH X1 PRN INFIL 06/19/17 09:45 06/21/17 09:44 06/19/17 23:31 (Muri-Lube Oil) 10 ml UNSCH PRN TOPICAL 06/19/17 09:45 06/19/17 23:31 Oxytocin 500 ml @ 1 mls/hr TITRATE IV 06/19/17 11:30 Fentanyl/ Bupivacaine HCl 100 ml @ 0 mls/hr TITRATE EPIDURAL 06/19/17 20:45 06/19/17 20:47 (NS Flush) 2 ml BID IV FLUSH 06/20/17 09:00 (NS Flush) 2 ml UNSCH PRN IV FLUSH 06/20/17 00:15 (Tylenol) 650 mg Q4H PRN PO 06/20/17 00:15 06/21/17 03:30 (Motrin) 600 mg Q6H PRN PO 06/20/17 00:15 06/21/17 03:30 (Percocet 5-325 Mg) 1 tab Q4H PRN PO 06/20/17 00:15 06/20/17 21:32 (Percocet 5-325 Mg) 2 tab Q4H PRN PO 06/20/17 00:15 (Americaine 20% Top Spr) 1 spray Q4H PRN TOPICAL 06/20/17 00:15 06/20/17 01:21 (Tucks Pads) 1 applic QID PRN TOPICAL 06/20/17 00:15 06/20/17 01:21 (Abiola-Colace) 2 tab Q12H PRN PO 06/20/17 00:15 06/20/17 15:20 (Ambien) 5 mg HS PRN PO 06/20/17 00:15 (Mag-Al Plus Susp Liq) 15 ml Q8H PRN PO 06/20/17 00:15 (Zofran Odt) 4 mg Q6H PRN PO 06/20/17 00:15 Assessment/Plan Problem List: (1) 40 weeks gestation of ICD Codes: Z3A.40 - 40 weeks gestation of Status: Resolved (2) (spontaneous vaginal delivery) ICD Codes: O80 - Encounter for full-term uncomplicated delivery Status: Acute Assessment and Plan 31y/o female who is day # 2 s/p . -Continue routine care. -Motrin PRN pain. -Encouraged OOB. Advised pelvic rest for 6 wks. -Re: ctrl, she would like to discuss her options at her follow-up appointment. - discharge today, 06/21. renetta Sainz MD Discharge Planning today, 06/21 Carlee Soriano MD R1 Jun 21, 2017 08:51
[2017-06-21] MEDS: DOCUSATE SODIUM 50 MG/SENNA 8.6 MG TAB PO PRN (09:40)
[2017-06-21] MEDS: oxyCODONE/ACETAMINOPHEN 5 MG/325 MG TAB PO PRN (09:42)
== END 2017-06-21 11:50 | disposition home or self-care (01) | DRG 775 ==
LOC: H2EB 08:33 → H1EA 06-20 00:38
PROVIDERS: ADMIT Obstetrics & Gynecology; ATTEND Obstetrics & Gynecology
PROC: 10D07Z6 Extraction of Products of Conception, Vacuum, Via Natural or Artificial Opening (ICD-10-PCS; principal; 2017-06-19)
PROC: 0DQP0ZZ Repair Rectum, Open Approach (ICD-10-PCS; 2017-06-19)
PROC: 0W8NXZZ Division of Female Perineum, External Approach (ICD-10-PCS; 2017-06-19)
PROC: 3E0R3CZ (ICD-10-PCS; 2017-06-19)
PROC: 00HU33Z Insertion of Infusion Device into Spinal Canal, Percutaneous Approach (ICD-10-PCS; 2017-06-19)
DX: O34.219 Maternal care for unspecified type scar from previous cesarean delivery (principal); O70.3 Fourth degree perineal laceration during delivery; Z37.0 Single live birth; O69.81X0 Labor and delivery complicated by cord around neck, without compression, not applicable or unspecified; Z3A.40 40 weeks gestation of pregnancy; O99.52 Diseases of the respiratory system complicating childbirth; J45.909 Unspecified asthma, uncomplicated; Z82.49 Family history of ischemic heart disease and other diseases of the circulatory system; Z83.3 Family history of diabetes mellitus
CPT/HCPCS: 59025; 81001; 85025; 85027; 86900; 86901; 90715; J2210; J2405; J2590; J3010; J7120